=== PATIENT | female | born 1950 | race African-American/Black ===

== ENCOUNTER 2020-05-03 21:41 | Emergency (ER) | payer BC, OTHER ==
[2020-05-03 21:47] VITALS: BP 137/93; PULSE 72; TEMP 99.2; BMI 26.5
[2020-05-03] MEDS ORDERED: IBUPROFEN 600 MG TABLET (FP) PO ONE ×2 (23:33→23:41)
[2020-05-03 23:34] LABS: PH,URINE 5.5 (5.0-8.0); URINE APPEARANCE CLEAR; URINE BILIRUBIN NEGATIVE (NEGATIVE); URINE COLOR YELLOW; URINE GLUCOSE (UA) NEGATIVE (NEGATIVE); URINE KETONE NEGATIVE (NEGATIVE); URINE LEUK ESTERASE NEGATIVE (NEGATIVE); URINE NITRITE NEGATIVE (NEGATIVE); URINE PROTEIN NEGATIVE (NEGATIVE); URINE UROBILINOGEN 0.2 mg/dL (0.2-1.0)
== END 2020-05-04 00:21 | disposition home or self-care (01) ==
LOC: JER 21:41
DX: R10.9 Unspecified abdominal pain (principal); M79.10 Myalgia, unspecified site
CPT/HCPCS: 81003; 99283-25

== ENCOUNTER 2021-04-01 17:47 | Emergency (ER) | payer BC ==
[2021-04-01 17:55] VITALS: BP 128/87; PULSE 65; TEMP 98.3; BMI 28.9
[2021-04-01] MEDS ORDERED: CYCLOBENZAPRINE HCL 5 MG TABLET PO ONE (18:21)
[2021-04-01] MEDS ORDERED: IBUPROFEN 400 MG TABLET (FP) PO ONE ×3 (18:21→18:38)
[2021-04-01] MEDS ORDERED: CYCLOBENZAPRINE HCL 10 MG TABLET (FP) ONE (18:35)
[2021-04-01 19:09] LABS: URINE APPEARANCE CLEAR; URINE BILIRUBIN NEGATIVE (NEGATIVE); URINE COLOR YELLOW; URINE GLUCOSE (UA) NEGATIVE (NEGATIVE); URINE KETONE NEGATIVE (NEGATIVE); URINE LEUK ESTERASE NEGATIVE (NEGATIVE); URINE NITRITE NEGATIVE (NEGATIVE); URINE PROTEIN NEGATIVE (NEGATIVE); URINE UROBILINOGEN 0.2 mg/dL (0.2-1.0)
== END 2021-04-01 19:36 | disposition home or self-care (01) ==
LOC: JER 17:47 → JERFT 17:47
DX: M79.10 Myalgia, unspecified site (principal); R10.9 Unspecified abdominal pain
CPT/HCPCS: 81003; 87086; 99284-25

== ENCOUNTER 2021-07-08 19:20 | Emergency (ER) | payer BC ==
[2021-07-08 19:30] VITALS: BP 145/86; PULSE 68; TEMP 98.3; BMI 29.2
[2021-07-08] MEDS ORDERED: FAMOTIDINE 20 MG/50 ML IVPB 20 MG/50 ML MG IVPB ONE ×2 (20:11→20:19)
[2021-07-08 21:14] LABS: CHLORIDE 109 mmol/L (98-107); SODIUM 140 mmol/L (136-145)
[2021-07-08 21:16] LABS: ALBUMIN 3.8 g/dl (3.4-5.0); CALCIUM 9.4 mg/dL (8.5-10.1)
[2021-07-08 21:17] LABS: ANION GAP 6 MMOL/L (8-16); CO2 25 mmol/L (21-32); GLUCOSE,RANDOM 106 mg/dL (74-106)
[2021-07-08 21:20] LABS: CREATININE 1.1 mg/dL (0.55-1.3); SGOT/AST 41 U/L (15-37); SGPT/ALT 25 U/L (13-61)
[2021-07-08 21:21] LABS: BILIRUBIN,TOTAL 0.3 mg/dL (0.2-1); TOT PROT 8.9 g/dl (6.4-8.2)
[2021-07-08 21:22] LABS: ALK PHOS 49 U/L (45-117)
[2021-07-08 21:49] LABS: BASO % 0.6 % (0-2.0); EOS % 1.4 % (0-4.5); HEMATOCRIT 33.3 % (32.4-45.2); HEMOGLOBIN 11.5 GM/dL (10.7-15.3); LYMPH % 28.1 % (8-40); MCH 30.7 pg (25.7-33.7); MCHC 34.7 g/dl (32.0-36.0); MEAN CELL VOLUME 88.6 fl (80-96); MONO % 9.2 % (3.8-10.2); NEUT % 60.7 % (42.8-82.8); PLATELET COUNT 150 10^3/uL (134-434); RBC 3.76 M/mm3 (3.60-5.2); RDW 12.9 % (11.6-15.6); WHITE BLOOD COUNT 4.6 K/mm3 (4.0-10.0)
[2021-07-08 21:54] LABS: EPI CELLS 8 /uL (0-25.1); HYALINE CASTS 0 /uL (0-3.1); PH,URINE 5.5 (5.0-8.0); URINE APPEARANCE CLEAR; URINE BACTERIA 74 /uL (0-1359); URINE BILIRUBIN NEGATIVE (NEGATIVE); URINE COLOR YELLOW; URINE GLUCOSE (UA) NEGATIVE (NEGATIVE); URINE KETONE NEGATIVE (NEGATIVE); URINE LEUK ESTERASE TRACE (NEGATIVE); URINE NITRITE NEGATIVE (NEGATIVE); URINE PROTEIN NEGATIVE (NEGATIVE); URINE RBC 5 /uL (0-23.9); URINE UROBILINOGEN 0.2 mg/dL (0.2-1.0); URINE WBC 9 /uL (0-25.8)
[2021-07-08] MEDS ORDERED: MAG HYDROX/AL HYDROX/SIMETH 30 ML UNIT-DOSE CUP PO ONE (23:09)
[2021-07-08] MEDS ORDERED: DICYCLOMINE HCL 10 MG/5 ML PO ONE (23:09)
[2021-07-08] MEDS ORDERED: DICYCLOMINE HCL 10 MG CAPSULE ONE (23:20)
== END 2021-07-08 23:48 | disposition home or self-care (01) ==
LOC: JER 19:20
PROC: 3E033GC Introduction of Other Therapeutic Substance into Peripheral Vein, Percutaneous Approach (ICD-10-PCS; principal; 2021-07-08)
DX: R10.13 Epigastric pain (principal)
CPT/HCPCS: 36415; 80053; 81003; 82550; 82553; 84484; 85025; 87086; 93005; 93010; 99284-25

== ENCOUNTER 2021-08-26 19:04 | Emergency (ER) | payer BC ==
[2021-08-26 19:26] VITALS: TEMP 98.1; BMI 28.1
[2021-08-26 20:28] LABS: BASO % 1.1 % (0-2.0); EOS % 3.1 % (0-4.5); HEMATOCRIT 35.1 % (32.4-45.2); HEMOGLOBIN 11.7 GM/dL (10.7-15.3); LYMPH % 41.2 % (8-40); MCH 29.5 pg (25.7-33.7); MCHC 33.3 g/dl (32.0-36.0); MEAN CELL VOLUME 88.5 fl (80-96); MEAN PLT VOLUME 9.6 fl (7.5-11.1); MONO % 9.3 % (3.8-10.2); NEUT % 45.3 % (42.8-82.8); PLATELET COUNT 137 10^3/uL (134-434); RBC 3.96 M/mm3 (3.60-5.2); RDW 13.6 % (11.6-15.6); WHITE BLOOD COUNT 3.1 K/mm3 (4.0-10.0)
[2021-08-26 20:47] LABS: CHLORIDE 105 mmol/L (98-107); SODIUM 139 mmol/L (136-145)
[2021-08-26 20:53] LABS: ALBUMIN 4.1 g/dl (3.4-5.0); ANION GAP 10 MMOL/L (8-16); BLOOD UREA NITROGEN 11.5 mg/dL (7-18); CALCIUM 9.8 mg/dL (8.5-10.1); CO2 24 mmol/L (21-32)
[2021-08-26 20:55] LABS: GLUCOSE,RANDOM 91 mg/dL (74-106)
[2021-08-26 20:57] LABS: SGOT/AST 34 U/L (15-37); SGPT/ALT 27 U/L (13-61)
[2021-08-26 20:58] LABS: BILIRUBIN,TOTAL 0.3 mg/dL (0.2-1); CREATININE 0.9 mg/dL (0.55-1.3); TOT PROT 8.9 g/dl (6.4-8.2)
[2021-08-26 20:59] LABS: ALK PHOS 47 U/L (45-117)
[2021-08-26 23:41] VITALS: BP 120/80; PULSE 74
== END 2021-08-26 23:41 | disposition home or self-care (01) ==
LOC: JER 19:04
DX: D32.9 Benign neoplasm of meninges, unspecified (principal); R42 Dizziness and giddiness
CPT/HCPCS: 36415; 70450-TC; 71046-TC-FY; 80053; 82550; 84484; 85025; 93005; 93010; 99285-25

== ENCOUNTER 2024-03-14 19:19 | Emergency (ER) | payer BC, OTHER ==
[2024-03-14 19:25] VITALS: BMI 24.5
[2024-03-14] MEDS ORDERED: METHOCARBAMOL 500 MG TABLET ONE (20:54)
[2024-03-14] MEDS ORDERED: LIDOCAINE 4% PATCH TP ONE (20:54)
[2024-03-14] MEDS ORDERED: ACETAMINOPHEN 500 MG TABLET (FP) ONE (20:56)
[2024-03-14] MEDS: LIDOCAINE 4% PATCH TP ONE (21:02)
[2024-03-14] MEDS: METHOCARBAMOL 500 MG TABLET PO ONE (21:02)
[2024-03-14] MEDS: ACETAMINOPHEN 500 MG TABLET (FP) PO ONE (21:03)
[2024-03-14 21:58] VITALS: BP 163/100; PULSE 51; RESP 16; TEMP 98
[2024-03-15] MEDS ORDERED: LIDOCAINE PATCH REMOVAL MC SCH (08:30)
== END 2024-03-14 21:59 | disposition home or self-care (01) ==
LOC: JER 19:19
DX: M54.6 Pain in thoracic spine (principal)
CPT/HCPCS: 93005; 93010; 99283-25